=== PATIENT | female | born 1940 | race Hispanic/Latino ===

== ENCOUNTER 2017-10-25 11:59 | Day surgery (SDC) | payer MEDICARE ==
[~2017-10-25 11:59] MED LIST: ANCEF/STERILE WATER 2 GM/20 ML 2 GM/20 ML SYRINGE IV NR; NACL 0.9% 1000 ML 1,000 ML IV SCH
[2017-10-25 12:58] LABS: Basophils % (Auto) 0.5 % (0.0-1.8); Eosinophils # (Auto) 0.2 K/mm3 (0.0-0.4); Eosinophils % (Auto) 3.8 % (0.0-4.3); Hematocrit 32.2 % (30.3-42.9); Hemoglobin 10.6 gm/dl (10.1-14.3); Lymphocytes # (Auto) 0.4 K/mm3 (1.2-5.4); Lymphocytes % (Auto) 7.2 % (13.4-35.0); Mean Corpuscular HGB Conc 33 % (30-34); Mean Corpuscular Hemoglobin 34 pg (28-32); Mean Corpuscular Volume 104 fl (79-97); Monocytes # (Auto) 0.7 K/mm3 (0.0-0.8); Monocytes % (Auto) 11.8 % (0.0-7.3); Platelet Count 186 K/mm3 (140-440); Red Cell Distribution Width 19.2 % (13.2-15.2)
[2017-10-25] MEDS ORDERED: NACL 0.9% 500 ML 500 ML IV SCH (13:00)
[2017-10-25 13:07] LABS: Calcium 8.6 mg/dL (8.4-10.2)
[2017-10-25 13:08] LABS: INR 1.15 (0.87-1.13)
[2017-10-25 13:09] LABS: Partial Thromboplastin Time 33.3 Sec. (24.2-36.6)
[2017-10-25] MEDS ORDERED: NACL 0.9% 500 ML IR ONE (13:33)
[2017-10-25] MEDS ORDERED: NACL 0.9% 250ML 250 ML ONE (13:34)
[2017-10-25] MEDS: XYLOCAINE 2% INFILTRATI ONE ×3 (13:44→14:05)
[2017-10-25] MEDS: SUBLIMAZE ONE ×3 (13:44→14:11)
[2017-10-25] MEDS: VERSED ONE ×2 (13:44→14:03)
--- NOTE | 2017-10-25 15:41 | Operative Report ---
Operative Report Operative Report: Procedure: 1. Ultrasound evaluation of the abdomen 2. 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 A timeout was performed. US evaluation of the abdomen was performed - a large amount of ascites was seen. Using ultrasound and fluoroscopic landmarks, a location on the right lower quadrant was chosen for access. Local anesthetic was administered. Under continuous ultrasound guidance, a 21 gauge needle was used to access the peritoneum. Using a micropuncture technique, an .035 wire was advanced into the peritoneum. After serial tissue dilation, a peel away sheath was placed. Another location 5-6 cm cranial/lateral to the first puncture site was chosen. Local anesthetic was again administered. The catheter was tunneled under the skin and advanced into the peritoneum via the peel away sheath. The cuff was secured in the skin tract. The access site was closed with 4-0 monocryl and dermabond.
[2017-10-25 16:30] VITALS: BP 127/72
== END 2017-10-25 16:15 | disposition home or self-care (01) ==
LOC: CATHLABREC 11:59
PROVIDERS: ATTEND Radiology Diagnostic Radiology
DX: K75.4 Autoimmune hepatitis (principal); K72.90 Hepatic failure, unspecified without coma; R18.8 Other ascites
CPT/HCPCS: 36415; 49418; 80048; 85025; 85610; 85730; J2250; J3010; J7050